=== PATIENT | female | born 1930 | race Caucasian/White ===

== ENCOUNTER 2016-12-02 16:18 | Inpatient (IN) | payer MEDICARE ==
--- NOTE | ~2016-12-02 | CN ---
Consultation Report [facility] [address] [place]. [address] NAME: MURALI KAT : [birth year] STATUS : ADM IN PAT#: [id number] AGE: 86 ADM/REG DATE : 12/02/16 MR#: [id number] REPORT SERV DATE: 12/06/16 DICTATED BY: DORA QUIÑONEZ DATE: 12/06/16 REPORT STATUS : Draft TRANSCRIBED BY: MODL DATE: 12/06/16 NEPHROLOGY CONSULTATION DATE OF CONSULTATION: 12/06/2016 INDICATION FOR CONSULTATION: Assist with management of edema, hypertension, and hyponatremia. HISTORY OF PRESENT ILLNESS: Ms. Kat is an 86-year-old female, who has previously been seen by Dr. Chen while hospitalized at [facility]. This occurred some 18 months ago when she was noted to have significant hyponatremia, and this has been a chronic outpatient problem. She was placed on a 1000 mL fluid restriction with significant improvement in her serum sodium value. As an outpatient, she sees Dr. Kramer, who has gradually liberalized her fluid intake to 48 ounces daily. Recently, her mother became short of breath and noted more edema and just overall felt bad. Her serum sodium had fallen from 129 to 123. She was taken to [facility] and subsequently transferred to [facility]. Her serum sodium lorenzo from 123 to a peak value of 132 and has now fallen to 130. Her serum creatinine was 1.21 on admission, lorenzo to 1.43, and has now fallen to 1.22. There were medication adjustments during the hospitalization with hold on valsartan and diuretics. Renal ultrasound demonstrated a 7.4 cm length left kidney with normal-sized right kidney. The patient's daughter relates that edema has been chronic. They have attempted using support hose, but she has a significant skin reaction to elastic in these stockings. They typically measure fluid at home to control the sodium and elevate her legs to control the edema. It has been pointed out that she has been on both amlodipine and diltiazem, which may contribute to her underlying edema. They have had numerous antihypertensive changes in the past, and she desires to avoid a prolonged hospitalization. PAST MEDICAL HISTORY: CKD stage 3, hypertension, left renal atrophy with history of attempt of left renal artery stenting, CHF, anemia, peripheral arterial disease, hypothyroidism, osteoarthritis, UTIs with incontinence, gastroesophageal reflux disease, remote pneumonia. PAST SURGICAL HISTORY: Thyroidectomy due to goiter in 1971 and cholecystectomy in 1973. FAMILY HISTORY: Positive for hypertension and CVAs. No history of end-stage renal disease. SOCIAL HISTORY: The patient lives at home with daughter and grandson. No use of tobacco, alcohol, or illicit drugs. MEDICATIONS AT HOME: Amlodipine, vitamin C, aspirin, Caltrate, Zyrtec, cranberry capsule, vitamin B12, Cardizem CD, Colace, Lasix, Neurontin, Apresoline, hydrocodone, Synthroid, mag oxide, fish oral, Nasacort, and Diovan. ALLERGIES: NONE KNOWN. Consultation Report [place] [id number] [facility] [place]. [address] NAME: MURALI KAT : [birth year] STATUS : ADM IN [facility]#: [id number] AGE: 86 ADM/REG DATE : 12/02/16 MR#: [id number] REPORT SERV DATE: 12/06/16 DICTATED BY: DORA QUIÑONEZ DATE: 12/06/16 REPORT STATUS : Draft TRANSCRIBED BY: ARLETTE DATE: 12/06/16 REVIEW OF SYSTEMS: HEENT: No change in visual acuity. No epistaxis. No otic infection. No pharyngitis. PULMONARY: Notes some shortness of breath. No cough or hemoptysis. CARDIAC: No chest pain. Has chronic lower extremity edema. GI: No nausea, vomiting, or melena. : Has history of UTIs and urinary incontinence. No gross hematuria. MUSCULOSKELETAL: Pain in back, right arm, left ankle. INTEGUMENT: No current rash or skin lesions. NEUROLOGIC: No lateralizing weakness or seizure activity. PHYSICAL EXAMINATION: GENERAL: Pleasant, elderly female, alert and cooperative. VITAL SIGNS: Blood pressure 166/72, temp 97.3, pulse 68, respiratory rate 18. HEENT: Eyes, no scleral icterus. Pupils equal and reactive to light. Extraocular movement intact. Nares patent, no discharge. Throat, no injection, mucous membranes moist. NECK: No thyromegaly, masses, or bruits. Note of scar at base of neck. CHEST/LUNGS: Few late crackles posteriorly. No wheezing. No dullness. CARDIAC: Regular rate and rhythm. Unable to appreciate murmur, gallop, or rub. ABDOMEN: Obese. Normoactive bowel sounds. Nontender. No hepatosplenomegaly. No masses. BREASTS: Not performed. PELVIC: Not performed. RECTAL: Not performed. EXTREMITIES: 2+ to 3+ edema. No calf tenderness. DERMIS: No rash. No skin lesions. NEUROLOGIC: Cranial nerves intact. No lateralizing weakness. IMPRESSION: 1. Hypervolemic hyponatremia, overall improved. 2. Chronic kidney disease stage 3. 3. Hypertension. 4. Acute diastolic congestive heart failure. 5. Atrophic left kidney with previous intervention/stent. 6. Peripheral arterial disease. 7. Hypoxemic respiratory failure. 8. Lower extremity edema, possibly medication related with Norvasc and diltiazem. 9. Hypothyroidism following thyroidectomy for goiter. 10.Osteoarthritis. 11.Recent fall with right wrist fracture, left ankle fracture, T1 compression fracture. 12.History of dysphagia and gastroesophageal reflux disease. 13.Remote cholecystectomy. 14.Urinary tract infections with urinary incontinence. PLAN: 1. Lab. 2. Increase valsartan. Consultation Report [address] [address] NAME: MURALI KAT : [birth year] STATUS : ADM IN [facility]#: [id number] AGE: 86 ADM/REG DATE : 12/02/16 MR#: [id number] REPORT SERV DATE: 12/06/16 DICTATED BY: DORA QUIÑONEZ DATE: 12/06/16 REPORT STATUS : Draft TRANSCRIBED BY: ARLETTE DATE: 12/06/16 3. Restrict fluid to 1000 mL daily. If the patient is stable, could be released soon. KSENIA/ARLETTE Dora Quiñonez M.D. / [id number] CC: Any Muñoz M.D.
--- NOTE | ~2016-12-02 | DS ---
Discharge Summary [address] [address] NAME: MURALI ROBERTSON : [birth year] STATUS : DIS IN PAT#: [id number] AGE: 86 ADM/REG DATE : 12/02/16 MR#: [id number] REPORT SERV DATE: 12/08/16 DICTATED BY: KIANA GALICIA DATE: 12/07/16 REPORT STATUS : Draft TRANSCRIBED BY: MODL DATE: 12/07/16 ADMISSION DATE: 12/02/2016 DISCHARGE DATE: 12/07/2016 DISCHARGE DIAGNOSES: 1. Acute diastolic congestive heart failure. 2. Acute hypoxemic respiratory failure. 3. Uncontrolled hypertension. 4. Chronic kidney disease 3. 5. Atrophic left kidney with previous intervention/stent. 6. Acute on chronic hyponatremia. 7. Hyperkalemia associated with high-dose ARB and aggressive diuresis. 8. Chronic lower extremity edema, multifactorial. 9. Chronic anemia. 10.Recent fall in October with hospitalization at [facility] followed by [facility] with right wrist, ribs 2 through 9 and compression fractures. 11.Right lower lobe pulmonary nodule on CT imaging here, followup in six months needed. 12.Left greater than right pleural effusions. 13.Left greater than right atelectasis. 14.Axial osteoarthritis. 15.Hypothyroidism, post subtotal thyroidectomy, on Synthroid replacement. 16.Possible peripheral arterial disease. OPERATIONS AND PROCEDURES: None. PRESENT ILLNESS: This is an 86-year-old white female who was admitted by Dr. Garcia on 12/02/2016, taken in transfer from [facility] Emergency Room with diagnoses of: 1. Acute congestive heart failure exacerbation. 2. Acute hypoxic respiratory failure secondary to acute congestive heart failure exacerbation. 3. Hyponatremia due to hypervolemia. 4. Hypertension. 5. Peripheral arterial disease. 6. Hypothyroidism. 7. Arthritis. All as outlined on admission history and physical examination dictated by Dr. Garcia. ADDITIONAL HISTORY: Per Dr. Garcia. PHYSICAL EXAMINATION: Per Dr. Garcia. ADMISSION LABORATORY: Per Dr. Garcia. HOSPITAL COURSE: She was admitted to [address] [place] [address]. She was started on an IV Lasix diuresis. Discharge Summary [address] [address] NAME: MURALI ROBERTSON : [birth year] STATUS : DIS IN PAT#: [id number] AGE: 86 ADM/REG DATE : 12/02/16 MR#: [id number] REPORT SERV DATE: 12/08/16 DICTATED BY: KIANA GALICIA DATE: 12/07/16 REPORT STATUS : Draft TRANSCRIBED BY: MODJamal DATE: 12/07/16 Additional laboratory studies were performed. She was followed by Dr. Garcia through 12/04/2016. She was seen by me on 12/05/2016 and followed on 12/06/2016 and 12/07/2016. Her echocardiogram showed normal left ventricular size and systolic function with an EF of 60%. There was mild left ventricular diastolic dysfunction and normal right ventricular size and systolic function. There was mild aortic, mitral, and tricuspid regurgitation. When seen by me on 12/05/2016, her weight which had been 100.24 kg on admission, was 97.23. She thought there had been some improvement in her shortness of breath and lower extremity swelling. On that date, her serum sodium had increased from 129 to 132, but her potassium has increased to 5.8. Her serum creatinine which had been 1.23, had increased to 1.37. It was felt by history and exam that some of her edema was probably related to her calcium channel kassy therapy in addition to chronic venous disease and chronic kidney disease in addition to her diastolic dysfunction. Her Cardizem was held. She was given escalating doses of hydralazine to improve her blood pressure control. Venous ultrasound imaging was done to evaluate for DVT and no DVT was evident in either lower extremity. Renal ultrasound imaging was done. There was a severely atrophic left kidney with a tiny benign cyst in her right kidney. On 12/06/2016, her sodium was 130 and potassium 4.6. Her blood pressures remained elevated. Her valsartan was restarted. Nephrology consultation was obtained to assist with management of her edema, hypertension, and hyponatremia. She was seen by Dr. Horner. He suggested further escalating her valsartan, restricting her fluid to 1000 mL daily from 1500 mL and performing Doppler ultrasound of her renal arteries. This was a technically difficult exam and the right renal artery demonstrated no evidence of stenosis. Because of her persistent dyspnea and recent trauma, a CT scan of her chest was done with findings as noted above. On 12/07/2016, she had lost a total of 3.15 kg. Her dyspnea was improved over admission. Her edema was approximately the same. Her systolic blood pressures were running in the 170s. Her sodium is 133 and potassium 4.3 with a creatinine of 1.21. The patient and daughter thought they could manage at home. She was seen by Dr. Horner and myself and we concurred provided she had close followup. She is being discharged home today with [facility]. She will need a low- sodium diet. Restrict her total fluids in a 24-hour period with 1000 mL. She will follow up with Dr. Dereck Kramer next week (the patient's daughter called Dr. Kramer the night prior to discharge), and she will see Dr. Chen in the Nephrology office in two to four Discharge Summary [address] [address] NAME: MURALI ROBERTSON : [birth year] STATUS : DIS IN PAT#: [id number] AGE: 86 ADM/REG DATE : 12/02/16 MR#: [id number] REPORT SERV DATE: 12/08/16 DICTATED BY: KIANA GALICIA DATE: 12/07/16 REPORT STATUS : Draft TRANSCRIBED BY: ARLETTE DATE: 12/07/16 weeks. She also has a followup with [facility] in January. Dr. Horner requested a CBC, renal panel in a week by home health care with results faxed to Dr. Kramer, and to the Nephrology office. DISCHARGE MEDICATIONS: Pending outpatient followup will be Norvasc 10 mg daily, vitamin C 500 mg twice daily, aspirin 162 mg daily, vitamin B12 1000 mcg daily, Caltrate plus D 600 mg twice daily, Colace 100 mg daily, Lasix 40 mg twice daily, Neurontin 300 mg at bedtime, Synthroid 100 mcg daily, Zyrtec 10 mg daily, magnesium oxide 250 mg daily, fish oil 1200 mg daily, valsartan 160 mg twice daily, Apresoline 100 mg three times daily, Nasacort one spray daily, cranberry extract daily, Fenton 7.5/325 at bedtime as needed. She will not use Cardizem at this time. Discharge time greater than 30 minutes. DICTATED BY: Kiana Galicia M.D. DD/ARLETTE Kiana Galicia M.D. / [id number] CC: Any Muñoz M.D. Joseph Watlington, M.D.
--- NOTE | ~2016-12-02 | HP ---
History And Physical [address] [place]. [address] NAME: MURALI ROBERTSON : [birth year] STATUS : ADM IN [facility]#: [id number] AGE: 86 ADM/REG DATE : 12/02/16 MR#: [id number] REPORT SERV DATE: 12/02/16 DICTATED BY: OVIDIO GARCIA DATE: 12/02/16 REPORT STATUS : Draft TRANSCRIBED BY: MODL DATE: 12/02/16 DATE OF ADMISSION: 12/02/2016 CHIEF COMPLAINT: Shortness of breath. HISTORY OF PRESENT ILLNESS: This is an 86-year-old lady with history of possible congestive heart failure presenting with a shortness of breath. The patient was actually transferred from [facility] and over the past few days, the patient has been deteriorating with weight gain and shortness of breath. The patient was actually seen by her PCP, who prescribed her some Lasix but the Lasix was held after a couple of days because her sodium level came back low. In the meantime, the patient continued to have worsening edema with shortness of breath, and thus, the patient was brought to the ER for further evaluation and care. At [facility] ER, the patient was found to be hemodynamically stable. The patient did require 2 L of oxygen per nasal cannula to maintain adequate oxygen saturations. Lab evaluation at [facility] showed a sodium level of 123. Chest x-ray at [facility] reportedly showed vascular congestion. Transfer request was made for higher level of care. REVIEW OF SYSTEMS: The patient denies any fevers or chills. Also, 14-point review of systems reviewed and negative other than mentioned above. MEDICATIONS: The list is still pending at this time. PAST MEDICAL HISTORY: 1. Possible congestive heart failure, patient apparently had a diagnosis of congestive heart failure on the paper that was never explained to the family. 2. Hypertension. 3. Hypothyroidism. 4. Peripheral artery disease. 5. Osteoarthritis. 6. History of episodes of hyponatremia. PAST SURGICAL HISTORY: 1. Thyroidectomy. 2. Cholecystectomy. FAMILY HISTORY: CVAs in the past. SOCIAL HISTORY: The patient does not smoke, drink alcohol, or use any illicit drugs. The patient lives at home with her daughter and grandson. The patient's daughter is at bedside. PHYSICAL EXAMINATION: VITAL SIGNS: Temperature 96.7, blood pressure 191/81, pulse 61, respiratory rate is 22, saturating 95% on 2 L of oxygen. NEUROLOGIC: The patient is alert and oriented x3 with no focal neurologic deficits. GENERAL: The patient is awake, does not appear to be in acute distress, and she is History And Physical [address] [address] NAME: MURALI ROBERTSON : [birth year] STATUS : ADM IN PAT#: [id number] AGE: 86 ADM/REG DATE : 12/02/16 MR#: [id number] REPORT SERV DATE: 12/02/16 DICTATED BY: OVIDIO GARCIA DATE: 12/02/16 REPORT STATUS : Draft TRANSCRIBED BY: MODJamal DATE: 12/02/16 cooperative. NECK: No JVD. No lymphadenopathy. Normal thyroid. CHEST: No midline sternotomy scar and no tenderness to palpation. LUNGS: Clear to auscultation bilaterally with crackles in the bilateral lung bases. The patient otherwise has fairly normal respiratory effort on 2 L of oxygen per nasal cannula. CARDIOVASCULAR: Regular rate and rhythm with no murmurs, rubs, or gallops, and PMI is nondisplaced. ABDOMEN: Soft, nontender, with active bowel sounds and no organomegaly. EXTREMITIES: The patient has bilateral 2+ lower extremity edema with normal distal pulses and no calf tenderness. SKIN: Clean, dry, warm, and intact. LABORATORY DATA: Sodium is 123, potassium 5.2, chloride 87, BUN 22, creatinine 1.21, glucose 187, calcium was 8.4. LFTs were within normal limits. Lactic acid was 1.6, white blood cell count is 10.7, hemoglobin 11.8, platelets 183. ProBNP level was 1674, INR is 0.9. Urinalysis was negative. Chest x-ray at [facility] apparently showed mild vascular congestion. ASSESSMENT AND PLAN: This is an 86-year-old lady with history of congestive heart failure, presenting with acute congestive heart failure exacerbation as well as hyponatremia. 1. Acute congestive heart failure exacerbation. 2. Acute hypoxic respiratory failure secondary to acute congestive heart failure exacerbation. 3. Hyponatremia due to hypervolemia. 4. Hypertension. 5. Peripheral artery disease. 6. Hypothyroidism. 7. Arthritis. PLAN: My plan is to admit the patient under telemetry monitoring. The patient will be treated with IV Lasix diuresis. In's and out's will be closely monitored as well as daily weights and daily renal function. I will go ahead and check an echocardiogram. I will also check serial troponins, TSH level, and a.m. cortisol. The patient will also be given oxygen support and bronchodilator therapy. Otherwise, for the rest of stable past medical conditions, including hypertension, peripheral artery disease, hypothyroidism, et al, I will continue home medications. Standard DVT prophylaxis. The patient is full code at this time. Dottie/ARLETTE Ovidio Garcia MD / [id number] History And Physical [address] [address] NAME: MURALI ROBERTSON : [birth year] STATUS : ADM IN PAT#: [id number] AGE: 86 ADM/REG DATE : 12/02/16 MR#: [id number] REPORT SERV DATE: 12/02/16 DICTATED BY: OVIDIO GARCIA DATE: 12/02/16 REPORT STATUS : Draft TRANSCRIBED BY: MODJamal DATE: 12/02/16 CC: MD Dereck Hill M.D.
[~2016-12-02 16:18] MED LIST: ALEVE220 MG PO; APRES25 PO; CAT1 PO; EXFORGE1 TA3 PO; KLOR-CON M2020 MEQ PO; MULTIPLE VIT PO; NEUR100 PO; SYN1 PO
[2016-12-02] MEDS ORDERED: NASACORTAQ NAS (18:33)
[2016-12-02] MEDS ORDERED: NORV10 PO (18:40)
[2016-12-02] MEDS ORDERED: CARDCD180 PO (18:44)
[2016-12-02] MEDS ORDERED: CRANBERRY400 MG PO (18:45)
[2016-12-02] MEDS ORDERED: CALTRA600D PO (18:45)
[2016-12-02] MEDS ORDERED: VITC500 PO (18:46)
[2016-12-02] MEDS ORDERED: NEUR300 PO (18:47)
[2016-12-02] MEDS ORDERED: NORCO1 TA2 PO (18:47)
[2016-12-02] MEDS ORDERED: VITAMIN B-121000 MC1 PO (18:49)
[2016-12-02] MEDS ORDERED: FISH OIL1200 MG PO (18:49)
[2016-12-02] MEDS ORDERED: L20 PO (18:50)
[2016-12-02] MEDS ORDERED: DSS PO (18:50)
[2016-12-02] MEDS ORDERED: ASAB PO (18:51)
[2016-12-02] MEDS ORDERED: DIOV160 PO (18:52)
[2016-12-02] MEDS ORDERED: APRES50 PO (18:52)
[2016-12-02] MEDS ORDERED: MAG OXIDE250 MG PO (18:52)
[2016-12-02] MEDS ORDERED: ZYRTEC ALLGY10 MG PO (18:53)
[2016-12-02 21:08] LABS: B NATRIURETIC PEPTIDE (BNP) 249.5 PG/ML (< 100.0)
[2016-12-02 21:09] LABS: FREE T4 1.35 NG/DL (0.76-1.46); TROPONIN I <0.02 NG/ML (<0.05)
[2016-12-03 12:18] LABS: BASOPHILS 0.1 %; BASOPHILS ABSOLUTE 0.01 10/3/uL (0.0-0.16); EOSINOPHILS 0.9 %; EOSINOPHILS ABSOLUTE 0.08 10/3/uL (0.0-0.53); HEMATOCRIT 36.4 % (36.0-48.0); HEMOGLOBIN 11.8 g/dL (12.0-16.0); IMMATURE GRANULOCYTES 0.6 %; IMMATURE GRANULOCYTES ABSOLUTE 0.06 10/3/uL (0.0-0.11); LYMPHOCYTES 11.5 %; LYMPHOCYTES ABSOLUTE 1.08 10/3/uL (0.67-4.30); MEAN CORPUS HGB CONC 32.4 g/dL (32.0-36.0); MEAN CORPUSCULAR HEMOGLOB 27.4 pg (26.0-34.0); MEAN CORPUSCULAR VOLUME 84.7 fL (80-100); MEAN PLATELET VOLUME 9.6 fL (9.2-13.0); MONOCYTES 8.9 %; MONOCYTES ABSOLUTE 0.83 10/3/uL (0.21-1.20); NEUTROPHILS ABSOLUTE 7.31 10/3/uL (2.02-8.40); PLATELET COUNT 221 10/3/uL (150-400); RBC DISTRIBUTION WIDTH 13.6 % (12.0-16.0); WHITE BLOOD CELLS 9.4 10/3/uL (4.5-10.5)
[2016-12-03 12:19] LABS: MANUAL DIFF NO %
[2016-12-03 12:33] LABS: BUN (BLOOD UREA NITROGEN) 22 MG/DL (6-23); CALCIUM, SERUM 7.9 MG/DL (8.5-10.4); CHLORIDE, SERUM 93 MMOL/L (96-112); CO2 (CARBON DIOXIDE) 28 MMOL/L (24-34); CREATININE 1.23 MG/DL (0.55-1.02); GFR AFRICAN AMERICAN 45 ML/MIN (>=60); GFR NON AFRICAN AMERICAN 39 ML/MIN (>=60); GLUCOSE, SERUM 121 MG/DL (60-99); POTASSIUM, SERUM 4.4 MMOL/L (3.5-5.3); SODIUM, SERUM 129 MMOL/L (135-148)
[2016-12-03 13:59] LABS: GLYCOHEMOGLOBIN (HbA1c) 5.7 % (4.7-6.1)
[2016-12-04 05:52] LABS: BASOPHILS 0.3 %; BASOPHILS ABSOLUTE 0.03 10/3/uL (0.0-0.16); EOSINOPHILS 1.5 %; EOSINOPHILS ABSOLUTE 0.14 10/3/uL (0.0-0.53); HEMOGLOBIN 10.9 g/dL (12.0-16.0); IMMATURE GRANULOCYTES 0.5 %; IMMATURE GRANULOCYTES ABSOLUTE 0.05 10/3/uL (0.0-0.11); LYMPHOCYTES 24.5 %; LYMPHOCYTES ABSOLUTE 2.26 10/3/uL (0.67-4.30); MEAN CORPUS HGB CONC 33.4 g/dL (32.0-36.0); MEAN CORPUSCULAR HEMOGLOB 27.7 pg (26.0-34.0); MONOCYTES 10.4 %; MONOCYTES ABSOLUTE 0.96 10/3/uL (0.21-1.20); NEUTROPHILS 62.8 %; NEUTROPHILS ABSOLUTE 5.77 10/3/uL (2.02-8.40); PLATELET COUNT 190 10/3/uL (150-400); RBC DISTRIBUTION WIDTH 13.6 % (12.0-16.0); RED CELL COUNT 3.93 10/6/uL (4.0-5.6); WHITE BLOOD CELLS 9.2 10/3/uL (4.5-10.5)
[2016-12-04 05:55] LABS: HEMATOCRIT 32.6 % (36.0-48.0); MANUAL DIFF NO %
[2016-12-04 06:00] LABS: CALCIUM, SERUM 7.7 MG/DL (8.5-10.4); CHLORIDE, SERUM 94 MMOL/L (96-112); CO2 (CARBON DIOXIDE) 27 MMOL/L (24-34); CREATININE 1.43 MG/DL (0.55-1.02); GFR AFRICAN AMERICAN 38 ML/MIN (>=60); GFR NON AFRICAN AMERICAN 33 ML/MIN (>=60); POTASSIUM, SERUM 4.9 MMOL/L (3.5-5.3); SODIUM, SERUM 130 MMOL/L (135-148)
[2016-12-04 06:01] LABS: BUN (BLOOD UREA NITROGEN) 28 MG/DL (6-23); GLUCOSE, SERUM 94 MG/DL (60-99)
[2016-12-05 05:25] LABS: CHLORIDE, SERUM 97 MMOL/L (96-112); CO2 (CARBON DIOXIDE) 25 MMOL/L (24-34); CREATININE 1.37 MG/DL (0.55-1.02); GFR AFRICAN AMERICAN 40 ML/MIN (>=60); GFR NON AFRICAN AMERICAN 34 ML/MIN (>=60); GLUCOSE, SERUM 99 MG/DL (60-99); SODIUM, SERUM 132 MMOL/L (135-148)
[2016-12-05 05:32] LABS: BUN (BLOOD UREA NITROGEN) 34 MG/DL (6-23); POTASSIUM, SERUM 5.8 MMOL/L (3.5-5.3)
[2016-12-05 06:09] LABS: BASOPHILS 0.1 %; BASOPHILS ABSOLUTE 0.01 10/3/uL (0.0-0.16); EOSINOPHILS 1.7 %; EOSINOPHILS ABSOLUTE 0.13 10/3/uL (0.0-0.53); HEMOGLOBIN 10.2 g/dL (12.0-16.0); IMMATURE GRANULOCYTES 0.4 %; IMMATURE GRANULOCYTES ABSOLUTE 0.03 10/3/uL (0.0-0.11); LYMPHOCYTES 23.2 %; LYMPHOCYTES ABSOLUTE 1.81 10/3/uL (0.67-4.30); MEAN CORPUS HGB CONC 32.9 g/dL (32.0-36.0); MEAN CORPUSCULAR HEMOGLOB 27.5 pg (26.0-34.0); MEAN CORPUSCULAR VOLUME 83.6 fL (80-100); MEAN PLATELET VOLUME 9.4 fL (9.2-13.0); MONOCYTES 8.8 %; MONOCYTES ABSOLUTE 0.69 10/3/uL (0.21-1.20); NEUTROPHILS 65.8 %; NEUTROPHILS ABSOLUTE 5.13 10/3/uL (2.02-8.40); PLATELET COUNT 179 10/3/uL (150-400); RBC DISTRIBUTION WIDTH 13.6 % (12.0-16.0); RED CELL COUNT 3.71 10/6/uL (4.0-5.6); WHITE BLOOD CELLS 7.8 10/3/uL (4.5-10.5)
[2016-12-05 06:10] LABS: MANUAL DIFF NO %
[2016-12-06 04:44] LABS: BASOPHILS 0.3 %; BASOPHILS ABSOLUTE 0.02 10/3/uL (0.0-0.16); EOSINOPHILS 1.3 %; HEMATOCRIT 31.2 % (36.0-48.0); HEMOGLOBIN 10.1 g/dL (12.0-16.0); IMMATURE GRANULOCYTES 0.4 %; IMMATURE GRANULOCYTES ABSOLUTE 0.03 10/3/uL (0.0-0.11); LYMPHOCYTES 20.5 %; LYMPHOCYTES ABSOLUTE 1.54 10/3/uL (0.67-4.30); MEAN CORPUS HGB CONC 32.4 g/dL (32.0-36.0); MEAN CORPUSCULAR HEMOGLOB 27.2 pg (26.0-34.0); MEAN CORPUSCULAR VOLUME 83.9 fL (80-100); MEAN PLATELET VOLUME 9.3 fL (9.2-13.0); MONOCYTES ABSOLUTE 0.75 10/3/uL (0.21-1.20); NEUTROPHILS 67.5 %; NEUTROPHILS ABSOLUTE 5.08 10/3/uL (2.02-8.40); PLATELET COUNT 194 10/3/uL (150-400); RBC DISTRIBUTION WIDTH 13.8 % (12.0-16.0); RED CELL COUNT 3.72 10/6/uL (4.0-5.6); WHITE BLOOD CELLS 7.5 10/3/uL (4.5-10.5)
[2016-12-06 04:45] LABS: MANUAL DIFF NO %
[2016-12-06 05:01] LABS: ALBUMIN 2.8 G/DL (3.5-5.0); BUN (BLOOD UREA NITROGEN) 31 MG/DL (6-23); CALCIUM, SERUM 8.5 MG/DL (8.5-10.4); CHLORIDE, SERUM 96 MMOL/L (96-112); CO2 (CARBON DIOXIDE) 27 MMOL/L (24-34); CREATININE 1.22 MG/DL (0.55-1.02); GFR AFRICAN AMERICAN 46 ML/MIN (>=60); GFR NON AFRICAN AMERICAN 40 ML/MIN (>=60); GLUCOSE, SERUM 99 MG/DL (60-99); PHOSPHORUS, SERUM 4.4 MG/DL (2.5-4.5); SODIUM, SERUM 130 MMOL/L (135-148)
[2016-12-06 05:02] LABS: POTASSIUM, SERUM 4.6 MMOL/L (3.5-5.3)
[2016-12-06 18:20] LABS: CREATININE (RANDOM URINE) 42.6 MG/DL; CREATININE, URINE 42.6 MG/DL; MICROALBUMIN, RANDOM URINE 1.1 MG/DL
[2016-12-07 05:12] LABS: ALBUMIN 3.2 G/DL (3.5-5.0); BUN (BLOOD UREA NITROGEN) 28 MG/DL (6-23); CALCIUM, SERUM 9.1 MG/DL (8.5-10.4); CHLORIDE, SERUM 96 MMOL/L (96-112); CO2 (CARBON DIOXIDE) 27 MMOL/L (24-34); CREATININE 1.21 MG/DL (0.55-1.02); GFR AFRICAN AMERICAN 46 ML/MIN (>=60); GFR NON AFRICAN AMERICAN 40 ML/MIN (>=60); GLUCOSE, SERUM 115 MG/DL (60-99); PHOSPHORUS, SERUM 4.7 MG/DL (2.5-4.5); POTASSIUM, SERUM 4.3 MMOL/L (3.5-5.3); SODIUM, SERUM 133 MMOL/L (135-148)
[2016-12-07] MEDS ORDERED: HYDRALAZINE100 MG PO (16:25)
== END 2016-12-07 17:44 | disposition home health service (06) | DRG 291 ==
LOC: 6NO 16:18
PROVIDERS: Internal Medicine
DX: I13.0 Hypertensive heart and chronic kidney disease with heart failure and stage 1 through stage 4 chronic kidney disease, or unspecified chronic kidney disease (principal); J96.01 Acute respiratory failure with hypoxia; I50.33 Acute on chronic diastolic (congestive) heart failure; E87.1 Hypo-osmolality and hyponatremia; J98.11 Atelectasis; N18.3 Chronic kidney disease, stage 3 (moderate); E87.5 Hyperkalemia; R91.1 Solitary pulmonary nodule; E89.0 Postprocedural hypothyroidism; R32 Unspecified urinary incontinence; I73.9 Peripheral vascular disease, unspecified; Z91.81 History of falling; M19.90 Unspecified osteoarthritis, unspecified site; Z79.82 Long term (current) use of aspirin; Z87.440 Personal history of urinary (tract) infections; Z87.01 Personal history of pneumonia (recurrent); Z90.49 Acquired absence of other specified parts of digestive tract
CPT/HCPCS: 71020; 71250; 76775; 80048; 80069; 82043; 82533; 82570; 83036; 83880; 83930; 83935; 84300; 84439; 84443; 84484; 85025; 93005; 93306; 93970; 93975; 94640; 97162-GP; A9270-GY; G8978-CK-GP; G8979-CK-GP; G8980-CK-GP; J0360